=== PATIENT | male | born 1950 | race Hispanic/Latino ===

== ENCOUNTER 2018-03-16 21:17 | Emergency (ER) | payer MEDICARE, SELFPAY ==
[2018-03-16] MEDS ORDERED: Ketorolac Tromethamine 30 MG/ML VIAL ONE (21:51)
[2018-03-16] MEDS ORDERED: diphenhydrAMINE 25 MG CAP ONE (21:51)
== END 2018-03-16 22:18 | disposition home or self-care (01) ==
LOC: NAV ERS 21:17
DX: T63.481A Toxic effect of venom of other arthropod, accidental (unintentional), initial encounter (principal); I10 Essential (primary) hypertension
CPT/HCPCS: 96372; J1885